=== PATIENT | female | born 1960 | race Two or more races ===

== ENCOUNTER 2018-08-16 03:31 | Emergency (ER) | payer MEDICAID ==
[~2018-08-16] VITALS: Ht 157.5 cm; Wt 81.6 kg
[2018-08-16 04:10] VITALS: BP 149/110
[2018-08-16 04:33] LABS: Basophils # (auto) 0 uL; Basophils % (auto) 0.6 % (0.0-2.0); Eosinophils # (auto) 0.5 uL; Eosinophils % (auto) 5.6 % (0.0-7.0); Hematocrit 46.3 % (36.0-46.0); Hemoglobin 16.1 g/dL (12.2-16.2); Lymphocytes # (auto) 3.1 uL; Lymphocytes % (auto) 37.7 % (10.0-50.0); Mean Corpuscular Hemoglobin 30.6 pg (28.0-32.0); Mean Corpuscular Hgb Conc. 34.8 g/dL (32.0-36.0); Mean Corpuscular Volume 87.7 fL (80.0-100.0); Monocytes # (auto) 0.5 uL; Monocytes % (auto) 6.4 % (0.0-12.0); Neutrophils # (auto) 4.1 uL; Neutrophils % (auto) 49.7 % (37.0-80.0); Nucleated Red Blood Cells % 0.1 %; Platelet Count (auto) 172 10^3/uL (140-450); Red Blood Cells 5.28 10^6/uL (4.0-5.20); Red Cell Distribution Width 12.7 % (11.8-14.3); White Blood Cell 8.3 10^3/uL (4.4-10.8)
[2018-08-16 04:51] LABS: Alanine Aminotransferase 135 U/L (13-56); Albumin 4.2 g/dL (3.4-5.0); Anion Gap 9 (5-15); Aspartate Aminotransferase 61 U/L (15-37); BUN/Creatinine Ratio 15.7; Blood Urea Nitrogen 14 mg/dL (7-18); Calcium 8.9 mg/dL (8.5-10.1); Carbon Dioxide 26 mmol/L (21-32); Chloride 105 mmol/L (98-107); GFR African American 83 mL/min; GFR Non-African American 69 mL/min; Glucose 212 mg/dL (74-106); Potassium 3.7 mmol/L (3.5-5.1); Sodium 140 mmol/L (136-145)
[2018-08-16 04:55] LABS: Alkaline Phosphatase 214 U/L (45-117); Bilirubin, Total 0.4 mg/dL (0.2-1.0); Total Protein 8.2 g/dL (6.4-8.2)
[2018-08-16 05:21] LABS: Urine Bacteria FEW /hpf (None Seen); Urine Blood Negative /uL (Negative); Urine Specific Gravity 1.009 (1.001-1.035); Urine WBC 1 /hpf (0 - 5)
== END 2018-08-16 06:17 | disposition home or self-care (01) ==
LOC: ER 03:31
DX: R00.2 Palpitations (principal); R00.0 Tachycardia, unspecified
CPT/HCPCS: 36415; 71045; 80053; 81001; 84484; 85025; 93005

== ENCOUNTER 2018-10-24 09:09 | Emergency (ER) | payer MEDICAID ==
[~2018-10-24] VITALS: Ht 144.8 cm; Wt 63.5 kg
[2018-10-24 10:13] VITALS: BP 123/83
[2018-10-24] MEDS ORDERED: cefTRIAXone SOD 1,000 MG VL IM ONE (10:45)
[2018-10-24] MEDS ORDERED: IPRATROPIUM BROM 0.5 MG/2.5ML INH SOL NEB ONE (10:45)
[2018-10-24] MEDS ORDERED: ALBUTEROL SULF 2.5 MG/0.5ML(0.5%) NEB SOLN NEB ONE (10:45)
== END 2018-10-24 11:13 | disposition home or self-care (01) ==
LOC: ER 09:09
DX: J20.9 Acute bronchitis, unspecified (principal); J02.9 Acute pharyngitis, unspecified
CPT/HCPCS: 71046; 94640; 96372; 99283; J0696

== ENCOUNTER 2018-12-11 18:21 | Inpatient (IN) | payer MEDICAID | END 2018-12-13 18:06 | disposition home or self-care (01) | LOC: OVERFLOW 12-12 02:19 → ER 18:21 → EAST 12-12 13:11 | DX: E11.10 Type 2 diabetes mellitus with ketoacidosis without coma (principal); K85.00 Idiopathic acute pancreatitis without necrosis or infection; M41.9 Scoliosis, unspecified; E86.0 Dehydration; K42.9 Umbilical hernia without obstruction or gangrene; K57.90 Diverticulosis of intestine, part unspecified, without perforation or abscess without bleeding; K59.00 Constipation, unspecified; R00.0 Tachycardia, unspecified; E87.1 Hypo-osmolality and hyponatremia; E11.65 Type 2 diabetes mellitus with hyperglycemia; E03.9 Hypothyroidism, unspecified ==

== ENCOUNTER 2023-04-25 08:54 | Emergency (ER) | payer MEDICAID ==
[~2023-04-25] VITALS: Ht 152.4 cm; Wt 58.9 kg
[2023-04-25 08:59] VITALS: BP 164/90; PULSE 60; RESP 18; O2SAT 97
== END 2023-04-25 10:38 | disposition left against medical advice (07) ==
LOC: ER 08:54
DX: M79.662 Pain in left lower leg (principal); Z53.21 Procedure and treatment not carried out due to patient leaving prior to being seen by health care provider